=== PATIENT | male | born 1980 | race Caucasian/White ===

== ENCOUNTER 2016-12-19 10:31 | Emergency (ER) | payer OTHER, MEDICAID ==
[~2016-12-19] VITALS: Ht 167.6 cm; Wt 79.0 kg
[2016-12-19 10:33] VITALS: Ht 167.6 cm; Wt 79.0 kg
[2016-12-19] MEDS ORDERED: DICL100G37 TOP (10:50)
[2016-12-19] MEDS ORDERED: NAPR-260 PO (10:50)
--- NOTE | 2016-12-19 10:55 | ERD ---
ER Documentation Chief Complaint Date/Time DATE: 12/19/16 TIME: 10:52 Chief Complaint right arm pain x 1 mos HPI Patient is a 36-year-old male with no past medical history who presents to the ED with right forearm pain 2 months. 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 Patient states that over time his arm has gotten worse. He also states that he has pain at night. He states that the pain radiates from his elbow to his wrist. He denies any falls or trauma. He denies chest pain or cough or shortness of breath. Denies headache or dizziness. He states that he has tried BenGay for his symptoms with minimal relief. No other complaints. ROS All systems reviewed and are negative except as per history of present illness. Medications Home Meds Active Scripts Naproxen* (Naprosyn*) 500 Mg Tablet, 500 MG PO BID Y for PAIN AND/OR INFLAMMATION, #30 TAB Prov:EVELYNE TOM PA-C 12/19/16 Diclofenac Sodium* (Voltaren* Gel) 1% -100 Gm Gel, 2 GM TOP QID, #1 TUB Prov:EVELYNE TOM PA-C 12/19/16 Allergies Allergies: Coded Allergies: No Known Allergy (Unverified , 12/19/16) PMhx/Soc Medical and Surgical Hx: pt denies Medical Hx, pt denies Surgical Hx History of Surgery: No Anesthesia Reaction: No Hx Neurological Disorder: No Hx Respiratory Disorders: No Hx Cardiac Disorders: No Hx Psychiatric Problems: No Hx Miscellaneous Medical Probl: No Hx Alcohol Use: No Hx Substance Use: No Hx Tobacco Use: No Smoking Status: Never smoker FmHx Family History: No coronary disease, No diabetes, No other Physical Exam Vitals Vital Signs Date Time Temp Pulse Resp B/P Pulse Ox O2 Delivery O2 Flow Rate FiO2 12/19/16 10:33 98.2 72 18 118/81 99 Physical Exam GENERAL: Well-developed, well-nourished male. Appears in no acute distress. LUNG: Clear to auscultation bilaterally. No rhonchi, wheezing, rales or coarse breath sounds. HEART: Regular rate and rhythm. No murmurs, rubs or gallops. Extremities: Equal pulses bilaterally. No peripheral clubbing, cyanosis or edema. No unilateral leg swelling. Radius, ulnar and median nerve intact. No wrist drop. No snuffbox tenderness. Slight tenderness to the lateral side of the elbow. Pain with resisted pronation and supination. No step-offs or deformities. No swelling. No erythema. No signs of infection. NEUROLOGIC: Alert and oriented. Moving all four extremities. 5/5 strength in all extremities. Normal speech. Steady gait. SKIN: Normal color. Warm and dry. No rashes or lesions. Capillary refill < 2 seconds Procedures/MDM ER COURSE: I kept the patient and/or family informed of laboratory and diagnostic imaging results throughout the emergency room course. MEDICAL DECISION MAKING: This is a 36-year-old male who presents with right arm pain 2 months. Vital signs were reviewed. Patient is afebrile. Patient is not hypoxic. Patient is nontoxic or ill-appearing. Patient's symptoms are likely consistent with epicondylitis. However unable to rule out ligament or tendon injury. No x- rays were done today as patient does not have any trauma and pain has been chronic with no injury. Low suspicion for dislocation, fracture, septic joint, compartment syndrome, osteomyelitis, cellulitis, avascular necrosis, neurological injury, vascular injury, tendon laceration. Low suspicion for ACS , PE, AAA, dissection, DVT DISCHARGE: At this time, patient is stable for discharge and outpatient management with no new complaints during the ER course. Patient was sent home with Luisa and Betina astudillo and list of clinics in the area to follow-up with. Patient will be discharged home with instructions to recheck for new or worsening symptoms such as fever, nausea, weakness, LOC and to follow up with primary care in the next 1 -2 days. Patient was advised to return to the ER for any new or worsening symptoms. Plan was discussed and patient and/or family understands and agrees. Home instructions were given. Departure Diagnosis: Primary Impression: Epicondylitis Condition: Stable Patient Instructions: What is Tennis Elbow? Referrals: COMMUNITY CLINICS YOU HAVE RECEIVED A MEDICAL SCREENING EXAM AND THE RESULTS INDICATE THAT YOU DO NOT HAVE A CONDITION THAT REQUIRES URGENT TREATMENT IN THE EMERGENCY DEPARTMENT. FURTHER EVALUATION AND TREATMENT OF YOUR CONDITION CAN WAIT UNTIL YOU ARE SEEN IN YOUR DOCTORS OFFICE WITHIN THE NEXT 1-2 DAYS. IT IS YOUR RESPONSIBILITY TO MAKE AN APPOINTMENT FOR FOLOW-UP CARE. IF YOU HAVE A PRIMARY DOCTOR --you should call your primary doctor and schedule an appointment IF YOU DO NOT HAVE A PRIMARY DOCTOR YOU CAN CALL OUR PHYSICIAN REFERRAL HOTLINE AT IF YOU CAN NOT AFFORD TO SEE A PHYSICIAN YOU CAN CHOSE FROM THE FOLLOWING FORMERLY [facility] [address] [facility] [address] [facility] [facility] [address] [facility] [address] [address] [address] [facility] [address] [facility]. [address] Additional Instructions: Call your primary care doctor TOMORROW for an appointment during the next 1-2 days.See the doctor sooner or return here if your condition worsens before your appointment time. EVELYNE TOM PA-C Dec 19, 2016 10:55
== END 2016-12-19 11:17 | disposition left against medical advice (07) ==
LOC: FTE 10:31
DX: M77.11 Lateral epicondylitis, right elbow (principal)
CPT/HCPCS: 99283